=== PATIENT | female | born 1995 | race Hispanic/Latino ===

== ENCOUNTER 2022-04-10 20:35 | Emergency (ER) | payer MEDICAID ==
[~2022-04-10] VITALS: Ht 152.4 cm; Wt 60.8 kg
[2022-04-10 20:39] VITALS: BP 139/88
[2022-04-10 21:19] LABS: APPEARANCE,URINE CLEAR (CLEAR); BILIRUBIN,URINE NEGATIVE (NEGATIVE); COLOR,URINE YELLOW (YELLOW); GLUCOSE, URINE (UA) NEGATIVE (NEGATIVE); KETONES,URINE 40 mg/dL (NEGATIVE); LEUKOCYTE ESTERASE ,URINE NEGATIVE (NEGATIVE); NITRATE,URINE NEGATIVE (NEGATIVE); OCCULT BLOOD,URINE TRACE-INTACT (NEGATIVE); PROTEIN,URINE NEGATIVE (NEGATIVE); UROBILINOGEN,URINE 0.2 mg/dL (0.2-1.0)
[2022-04-10 21:24] LABS: HCG,QUAL RESULT NEGATIVE (NEGATIVE)
[2022-04-10 21:27] LABS: RBC,URINE 0-1 /HPF (0-1)
[2022-04-10 21:28] LABS: BACTERIA,URINE None Seen /HPF (None Seen); SQUAMOUS EPITHELIAL CELL,UR Rare /HPF (0-2); WBC,URINE None Seen /HPF (0-1)
== END 2022-04-10 21:54 | disposition home or self-care (01) ==
LOC: EDH 20:35
DX: R19.7 Diarrhea, unspecified (principal)
CPT/HCPCS: 81001; 81025